=== PATIENT | male | born 1940 | race Caucasian/White ===

== ENCOUNTER 2016-11-07 20:12 | Emergency (ER) | payer MEDICARE, BC | END 2016-11-08 01:00 | disposition short-term general hospital (02) | LOC: ER 20:12 | DX: I69.992 Facial weakness following unspecified cerebrovascular disease (principal); I69.854 Hemiplegia and hemiparesis following other cerebrovascular disease affecting left non-dominant side; I25.10 Atherosclerotic heart disease of native coronary artery without angina pectoris; F31.9 Bipolar disorder, unspecified; Z95.1 Presence of aortocoronary bypass graft; Z79.899 Other long term (current) drug therapy; Z79.84 Long term (current) use of oral hypoglycemic drugs; Z79.4 Long term (current) use of insulin; Z88.5 Allergy status to narcotic agent | CPT/HCPCS: 36415 ==

== ENCOUNTER 2017-02-04 11:27 | Emergency (ER) | payer MEDICARE, BC | END 2017-02-04 14:35 | disposition short-term general hospital (02) | LOC: ER 11:27 | DX: I63.9 Cerebral infarction, unspecified (principal); G81.94 Hemiplegia, unspecified affecting left nondominant side; I10 Essential (primary) hypertension; Z98.890 Other specified postprocedural states; Z98.61 Coronary angioplasty status; Z88.5 Allergy status to narcotic agent; F03.90 Unspecified dementia, unspecified severity, without behavioral disturbance, psychotic disturbance, mood disturbance, and anxiety; Z79.899 Other long term (current) drug therapy | CPT/HCPCS: 36415 ==

== ENCOUNTER 2017-02-09 14:34 | Inpatient (IN) | payer MEDICARE, BC ==
[~2017-02-09] VITALS: Ht 172.7 cm; Wt 74.4 kg
--- NOTE | 2017-02-20 12:44 | NUR ---
1015 - PATIENT OFF FLOOR FOR FAMILY REUNION. DAY PASS/MD ORDER.
--- NOTE | 2017-02-20 15:37 | NUR ---
1445 - PATIENT BACK ON FLOOR FROM DAY PASS. NO DISTRESS NOTED.
--- NOTE | 2017-02-23 12:40 | NUR ---
1230 - PATIENT TRANSFERRED TO [facility]. REPORT CALLED TO YAMIL GIMENEZ. NO IV ACCESS OR TELEMETRY. PAPERWORK SENT WITH . OUT VIA WHEELCHAIR. TRANSPORT VIA PRIVATE VEHICLE.
== END 2017-02-23 12:30 | DRG 65 ==
LOC: SWI 14:34
PROVIDERS: ADMIT Internal Medicine
DX: I63.9 Cerebral infarction, unspecified (principal); G81.94 Hemiplegia, unspecified affecting left nondominant side; N40.1 Benign prostatic hyperplasia with lower urinary tract symptoms; R33.8 Other retention of urine; E78.5 Hyperlipidemia, unspecified; I99.8 Other disorder of circulatory system; I10 Essential (primary) hypertension; I25.10 Atherosclerotic heart disease of native coronary artery without angina pectoris; Z95.1 Presence of aortocoronary bypass graft; I65.29 Occlusion and stenosis of unspecified carotid artery; I73.9 Peripheral vascular disease, unspecified; I48.91 Unspecified atrial fibrillation; M06.9 Rheumatoid arthritis, unspecified; K21.9 Gastro-esophageal reflux disease without esophagitis; E11.42 Type 2 diabetes mellitus with diabetic polyneuropathy; Z87.442 Personal history of urinary calculi; Z79.82 Long term (current) use of aspirin; Z79.01 Long term (current) use of anticoagulants; Z79.4 Long term (current) use of insulin; Z79.899 Other long term (current) drug therapy; Z88.5 Allergy status to narcotic agent; Z82.49 Family history of ischemic heart disease and other diseases of the circulatory system; Z83.3 Family history of diabetes mellitus
CPT/HCPCS: 92610; 97161-GP; 97166